=== PATIENT | female | born 1965 | race African-American/Black ===

== ENCOUNTER 2016-12-04 05:07 | Emergency (ER) | payer MEDICAID, OTHER ==
[~2016-12-04] VITALS: Ht 162.6 cm; Wt 125.2 kg
[~2016-12-04 05:07] MED LIST: ASPIRIN81 MG ORAL; BENADRYL50 MG ORAL; FERROUS SULFAT325 MG ORAL; LORATADINE10 M2 PO; METFORMIN HCL500 M1 ORAL; NABUMETONE750 MG PO; NKM; NORCO 5-325 TA1 EACH ORAL; OMEPRAZOLE40 M1 ORAL; VITAMIN D1000 UNI1 ORAL
--- NOTE | 2016-12-04 05:28 | Emergency Room Report ---
History of Present Illness General Chief Complaint: Upper Respiratory Illness Source: Patient Present Illness HPI Patient present with complaints of cough that has been ongoing for the past 3 weeks Denies any fevers or chills denies any headache Denies any chest pain or shortness of breath Patient reports that she was put on Z-Ubaldo by her primary physician which has not helped Patient also reports taking lisinopril prior to her breast surgery for labile blood pressure however states that she has been off that medication now she only took a few times Denies any lower extremities swelling Denies any recent travel Allergies: Coded Allergies: No Known Allergies (Unverified , 12/04/13) Patient History Past Medical History: see triage record Pertinent Family History: none Reviewed Nursing Documentation: PMH: Agreed, PSxH: Agreed Nursing Documentation-PMH Hx Cardiac Problems: No Hx Hypertension: No Hx Pacemaker: No Hx Asthma: No Hx COPD: No Hx Diabetes: Yes Hx Cancer: No Hx Gastrointestinal Problems: No Hx Dialysis: No Hx Neurological Problems: No Hx Cerebrovascular Accident: No Hx Seizures: No Review of Systems All Other Systems: negative except mentioned in HPI Physical Exam Vital Signs Date Time Temp Pulse Resp B/P Pulse Ox O2 Delivery O2 Flow Rate FiO2 12/04/16 05:08 97.3 74 16 126/84 99 Room Air Sp02 EP Interpretation: reviewed, normal General Appearance: well appearing, no apparent distress Head: normocephalic, atraumatic Eyes: bilateral eye EOMI, bilateral eye PERRL ENT: hearing grossly normal, normal pharynx, TMs + canals normal, uvula midline Neck: full range of motion, supple, no meningismus, no bony tend Respiratory: lungs clear, normal breath sounds, no rhonchi, no respiratory distress, no retraction, no accessory muscle use Cardiovascular #1: normal peripheral pulses, regular rate, rhythm, no edema, no gallop, no JVD, no murmur Gastrointestinal: normal bowel sounds, non tender, soft, no mass, no organomegaly, non-distended, no guarding, no hernia, no pulsatile mass, no rebound Genitourinary: no CVA tenderness Musculoskeletal: normal inspection Neurologic: oriented x3, responsive, manager actuarial III-XII nml as tested, motor strength/ tone normal, sensory intact Psychiatric: mood/affect normal Skin: other - Small appearance of a hematoma 1 x 1 cm left lateral calf area appear superficial Lymphatic: normal inspection, no adenopathy Medical Decision Making Diagnostic Impression: Primary Impression: URI (upper respiratory infection) Additional Impression: Cough ER Course Multiple differentials considered I felt that given the patient being on lisinopril could have also affected the cough Given the duration chest x-ray was obtained Patient's x-ray does not show any acute disease Does not appear septic or toxic and is stable for initial conservative outpatient trial Chest X-Ray Diagnostic Results EP Interpretation: Yes Findings: no consolidation, no effusion, no pneumothorax Number of Views: 1 Last Vital Signs Date Time Temp Pulse Resp B/P Pulse Ox O2 Delivery O2 Flow Rate FiO2 12/04/16 05:19 74 16 Room Air 12/04/16 05:08 97.3 126/84 99 Status: unchanged Disposition: HOME, SELF-CARE Condition: Improved Scripts Codeine/Promethazine Hcl* (PROMETHAZINE-CODEINE SYRUP*) 118 Ml Syrup 5 ML ORAL Q6H Y for For Cough for 5 Days, #118 ML 0 Refills Prov: KENNETH LOPEZ D.O. 12/04/16 Referrals: [facility],REFERR[facility] (PCP) Additional Instructions: Patient is provided with the discharge instructions notified to follow up with primary doctor in the next 2-3 days otherwise return to the er with any worsening symptoms. Please note that this report is being documented using [employer] technology. This can lead to erroneous entry secondary to incorrect interpretation by the dictating instrument. KENNETH LOPEZ D.O. December 04, 2016 05:28
[2016-12-04] MEDS ORDERED: PROMETHAZINE-C118 M1 ORAL (05:44)
[2016-12-04 05:50] VITALS: BP 126/84
--- NOTE | 2016-12-04 10:15 | Diagnostic Imaging Report ---
Indication: SOB Technique: One view of the chest Comparison: none Findings: The heart is borderline enlarged. Lungs and pleural spaces are clear. The bones are intact Impression: Borderline cardiomegaly. No acute process
== END 2016-12-04 05:55 | disposition home or self-care (01) ==
LOC: EMR 05:21
DX: J06.9 Acute upper respiratory infection, unspecified (principal); R05 Cough; E11.9 Type 2 diabetes mellitus without complications
CPT/HCPCS: 71010; 99283